=== PATIENT | male | born 1950 | race Asian ===

== ENCOUNTER 2016-09-19 17:51 | Emergency (ER) | payer MEDICARE, OTHER ==
[~2016-09-19] VITALS: Ht 177.8 cm; Wt 90.0 kg
[~2016-09-19 17:51] MED LIST: AMLO-511 PO; BENA40TA3 PO; CLON0.1T PO; IBUP-2070 PO; INSLAN SQ; INSNOV SQ; PANT40TA25 PO; RISP.5 PO; SOFO400T PO; SPIR25 PO; [UNRECOGNIZED DRUG - CODE] PO; [UNRECOGNIZED DRUG - CODE] SQ
[2016-09-19 18:03] LABS: GLUCOSE,POINT OF CARE 276 MG/DL (70-110)
[2016-09-19 21:27] VITALS: BP 180/110
[2016-09-19] MEDS ORDERED: AmLODIPine BESYLATE 5 MG TABLET PO ONE (21:30)
[2016-09-19] MEDS ORDERED: CloNIDine HCL 0.2 MG TABLET PO ONE (21:30)
[2016-09-19] MEDS ORDERED: INSULIN REGULAR, HUMAN 100 UNITS/ML SQ ONE (21:30)
[2016-09-19] MEDS ORDERED: CloNIDine HCL 0.1 MG TABLET PO ONE (22:00)
== END 2016-09-19 22:48 | disposition left against medical advice (07) ==
LOC: EMS 17:54
DX: E11.65 Type 2 diabetes mellitus with hyperglycemia (principal); I10 Essential (primary) hypertension; F17.210 Nicotine dependence, cigarettes, uncomplicated; Z79.4 Long term (current) use of insulin
CPT/HCPCS: 82962; 96372; 99283; 99406; J1815

== ENCOUNTER → 2017-02-14 | Outpatient (CLI) | payer MEDICARE, OTHER ==
[2017-02-14 16:24] LABS: BASOPHILS # (AUTO) 0.04 K/uL (0.00-0.20); BASOPHILS % (AUTO) 0.4 % (0.0-2.0); EOSINOPHILS # (AUTO) 0.22 K/uL (0.00-0.70); EOSINOPHILS % (AUTO) 2.25 % (1.0-6.0); HEMATOCRIT 46.3 % (41-53); LYMPHOCYTES # (AUTO) 4.1 K/uL (1.0-4.8); LYMPHOCYTES % (AUTO) 41.8 % (22.0-44.0); MEAN CORPUSCULAR HGB CONC 32.5 G/dL (31.0-37.0); MEAN CORPUSCULAR VOLUME 89 fL (80-100); MONOCYTES # (AUTO) 0.5 K/uL (0.1-1.0); MONOCYTES % (AUTO) 5.6 % (2.0-9.0); NEUTROPHILS # (AUTO) 4.8 K/uL (1.8-7.7); PLATELET COUNT (AUTO) 313 K/uL (150-450); RED BLOOD CELL COUNT(AUTO) 5.19 MIL/uL (4.50-5.90); RED CELL DISTRIBUTION WIDTH 13.6 % (11.5-14.5); WHITE BLOOD COUNT (AUTO) 9.7 K/uL (4.5-11.0)
[2017-02-14 16:36] LABS: INR 1.1 (0.9-1.1); PROTHROMBIN TIME 11.4 SEC (9.4-11.6)
[2017-02-14 16:46] LABS: HEMOGLOBIN A1C 11.1 % (4.5-6.2)
[2017-02-14 16:47] LABS: ALBUMIN 4.2 g/dL (3.4-5.0); BILIRUBIN,TOTAL 0.4 mg/dL (0.1-1.0); CHOL/HDL RATIO 7.3 (4.2-7.3); CREATININE 1.45 mg/dL (0.60-1.30); POTASSIUM 4.3 mmol/L (3.5-5.1); TOTAL PROTEIN, SERUM 8.9 g/dL (6.4-8.2)
[2017-02-14 17:09] LABS: THYROID STIMULATING HORMONE 2.1 uIU/mL (0.36-3.74)
== END | disposition home or self-care (01) ==
LOC: MSR 12:24
PROVIDERS: ATTEND Family Medicine
DX: E11.8 Type 2 diabetes mellitus with unspecified complications (principal); R79.1 Abnormal coagulation profile
CPT/HCPCS: 83036; 84443; 93005

== ENCOUNTER → 2017-03-22 | Outpatient (CLI) | payer MEDICARE, OTHER ==
[2017-03-22 16:25] LABS: BASOPHILS % (AUTO) 0.3 % (0.0-2.0); EOSINOPHILS % (AUTO) 1.7 % (1.0-6.0); HEMATOCRIT 41.8 % (41-53); LYMPHOCYTES # (AUTO) 3.1 K/uL (1.0-4.8); LYMPHOCYTES % (AUTO) 36.5 % (22.0-44.0); MEAN CORPUSCULAR HEMOGLOBIN 29.9 pg (26.0-34.0); MEAN CORPUSCULAR HGB CONC 33.6 G/dL (31.0-37.0); MEAN CORPUSCULAR VOLUME 89 fL (80-100); MONOCYTES # (AUTO) 0.5 K/uL (0.1-1.0); MONOCYTES % (AUTO) 5.5 % (2.0-9.0); NEUTROPHILS # (AUTO) 4.7 K/uL (1.8-7.7); PLATELET COUNT (AUTO) 336 K/uL (150-450); RED BLOOD CELL COUNT(AUTO) 4.69 MIL/uL (4.50-5.90); RED CELL DISTRIBUTION WIDTH 13.7 % (11.5-14.5); WHITE BLOOD COUNT (AUTO) 8.5 K/uL (4.5-11.0)
[2017-03-22 16:34] LABS: HEMOGLOBIN A1C 11.7 % (4.5-6.2)
[2017-03-22 16:36] LABS: ALBUMIN 3.8 g/dL (3.4-5.0); BILIRUBIN,TOTAL 0.4 mg/dL (0.1-1.0); CALCIUM, TOTAL 8.6 mg/dL (8.8-10.5); CREATININE 1.24 mg/dL (0.60-1.30); POTASSIUM 3.8 mmol/L (3.5-5.1); THYROID STIMULATING HORMONE 1.31 uIU/mL (0.36-3.74)
[2017-03-22 16:44] LABS: CHOL/HDL RATIO 7.2 (4.2-7.3)
[2017-03-22 17:43] LABS: PROTHROMBIN TIME 11.3 SEC (9.4-11.6)
[2017-03-22 17:44] LABS: INR 1.1 (0.9-1.1)
== END | disposition home or self-care (01) ==
LOC: LABPV 13:34
PROVIDERS: ATTEND Family Medicine
DX: E11.8 Type 2 diabetes mellitus with unspecified complications (principal); I10 Essential (primary) hypertension; Z79.01 Long term (current) use of anticoagulants
CPT/HCPCS: 83036; 84443

== ENCOUNTER 2017-11-30 09:58 | Emergency (ER) | payer MEDICARE, OTHER ==
[~2017-11-30] VITALS: Ht 177.8 cm; Wt 90.9 kg
[2017-11-30 10:18] LABS: GLUCOSE,POINT OF CARE 103 MG/DL (70-110)
[2017-11-30] MEDS ORDERED: KETOROLAC TROMETHAMINE 30 MG/ML VIAL IM ONE (11:30)
[2017-11-30 13:30] LABS: APPEARANCE,URINE CLOUDY (CLEAR); GLUCOSE, URINE (UA) 100 mg/dL (NEGATIVE); KETONES,URINE TRACE mg/dL (NEGATIVE); LEUKOCYTE ESTERASE ,URINE SMALL (NEGATIVE); NITRATE,URINE NEGATIVE (NEGATIVE); OCCULT BLOOD,URINE NEGATIVE (NEGATIVE); PH,URINE 5.5 (5.0-8.0); PROTEIN,URINE SEE CONFIRM (NEGATIVE)
[2017-11-30 13:42] LABS: BILIRUBIN,URINE PRELIM. POSITIVE (NEGATIVE)
[2017-11-30 13:49] LABS: RBC,URINE None Seen /HPF (0-2); SULFOSALICYLIC ACID,URINE 2+ (Negative)
[2017-11-30 13:50] LABS: BACTERIA,URINE Few /HPF (None Seen); SQUAMOUS EPITHELIAL CELL,UR Few /LPF (None Seen)
[2017-11-30 14:24] VITALS: BP 127/89
== END 2017-11-30 14:25 | disposition home or self-care (01) ==
LOC: EMS 10:00
DX: G57.13 Meralgia paresthetica, bilateral lower limbs (principal); N39.0 Urinary tract infection, site not specified; I10 Essential (primary) hypertension; E11.9 Type 2 diabetes mellitus without complications; F17.210 Nicotine dependence, cigarettes, uncomplicated; Z79.4 Long term (current) use of insulin
CPT/HCPCS: 81001; 82962; 87086; 96372; 99284; 99406; J1885